=== PATIENT | male | born 1960 | race Caucasian/White ===

== ENCOUNTER 2024-11-01 13:07 | Emergency (ER) | payer MEDICARE ==
[2024-11-01] MEDS: NS (Normal Saline) 0.9% 1,000 ML IV SCH (13:34)
[2024-11-01] MEDS: AMIODARONE HCL 360 MG in IV 1 EA IV SCH (13:35)
[2024-11-01] MEDS ORDERED: ISOVUE-370 76% 100ML VIAL As Ordered ONE (13:37)
[2024-11-01 13:39] LABS: BASO # 0.1 10^3/uL (0.0-0.2); BASO % 0.8 % (0.0-1.0); EOS # 0.1 10^3/uL (0.0-0.5); EOS % 1.5 % (0.0-3.0); HEMATOCRIT 39.1 % (42.0-52.0); HEMOGLOBIN 12.8 g/dl (13.5-17.5); LYMPH % 13.4 % (24.0-44.0); MEAN CORPUSCULAR HEMOGLOBIN 28.9 pg (27.0-33.0); MEAN CORPUSCULAR HGB CONC 32.7 g/dl (32.0-36.5); MEAN CORPUSCULAR VOLUME 88.3 fl (80.0-96.0); MONO # 0.7 10^3/uL (0.0-0.8); MONO % 8.9 % (2.0-8.0); NEUTROPHILS # 5.4 10^3/uL (1.5-8.5); NEUTROPHILS % 74.7 % (36.0-66.0); PLATELET COUNT, AUTOMATED 192 10^3/uL (150-450); RED BLOOD COUNT 4.43 10^6/uL (4.30-6.10); WHITE BLOOD COUNT 7.3 10^3/uL (4.0-10.0)
[2024-11-01 13:51] LABS: INR 1.08; PARTIAL THROMBOPLASTIN TIME 23.8 SECONDS (24.8-34.2); PROTHROMBIN TIME 14.3 SECONDS (12.5-14.5)
[2024-11-01] MEDS: ASPIRIN 81MG CHEW TABLET PO ONE (14:08)
[2024-11-01 14:11] LABS: ALBUMIN 3.2 G/DL (3.2-5.2); BILIRUBIN,DIRECT 0.2 MG/DL (<0.4); BILIRUBIN,TOTAL 0.6 MG/DL (0.3-1.2); CALCIUM LEVEL 7.9 MG/DL (8.3-10.6); CK-MB VALUE MASS 1.8 NG/ML (<3.6); CREATININE FOR GFR 1.02 MG/DL (0.70-1.30); GLOMERULAR FILTRATION RATE 81.6 (>49); MAGNESIUM LEVEL 1.8 MG/DL (1.8-2.4); MB/CK RELATIVE INDEX 1.73 (< OR =4); PHOSPHORUS LEVEL 4.1 MG/DL (2.4-5.1); POTASSIUM SERUM 3.5 MMOL/L (3.5-5.1); TOTAL PROTEIN 5.5 G/DL (5.7-8.2)
[2024-11-01 14:13] LABS: FREE T4 1.13 NG/DL (0.89-1.76); THYROID STIMULATING HORMONE 2.441 uIU/ML (0.55-4.78)
[2024-11-01] MEDS ORDERED: MORPHINE 2 MG/ML 1ML VIAL IV ONE (14:15)
[2024-11-01] MEDS ORDERED: ROSU5TAB49 PO (14:44)
[2024-11-01] MEDS ORDERED: TAMS-18 PO (14:44)
[2024-11-01] MEDS ORDERED: AVOD0.5C PO (14:45)
[2024-11-01 15:15] LABS: CK-MB VALUE MASS 3.2 NG/ML (<3.6)
[2024-11-01 15:17] LABS: MB/CK RELATIVE INDEX 1.83 (< OR =4)
[2024-11-01] MEDS ORDERED: HOME MED LIST COMPLETE! XX SCH (15:35)
[2024-11-01] MEDS ORDERED: ATOR1TAB19 PO (15:35)
[2024-11-01] MEDS ORDERED: ECOT81TA5 PO (15:35)
[2024-11-01 16:31] VITALS: BP 100/65; TEMP 97; O2SAT 100
== END 2024-11-01 16:43 | disposition short-term general hospital (02) ==
LOC: M ED 13:07
DX: I46.9 Cardiac arrest, cause unspecified (principal); Z95.0 Presence of cardiac pacemaker; I51.7 Cardiomegaly; R91.8 Other nonspecific abnormal finding of lung field; Z88.0 Allergy status to penicillin
CPT/HCPCS: 51702; 70450; 71045; 71275; 72125; 74177; 80047; 80048; 80076; 82550; 82553; 83735; 84100; 84439; 84443; 84484; 85025; 85610; 85730; 93005; 93041; 94760; 96365; 96366; 99291; 99292; J0282; Q9967